=== PATIENT | male | born 1960 ===

== ENCOUNTER 2016-06-30 06:35 | Day surgery (SDC) | payer MEDICARE, MEDICAID ==
[2016-05-06 07:51] VITALS: BMI 38.4
[2016-06-30] MEDS ORDERED: ceFAZolin IV 2 gm in Dextrose 1 GM/50 ML BAG IVPB ONE (09:22)
[2016-06-30] MEDS ORDERED: Bupivacaine/Epi 0.25%-1:200,000 10 ml PF inj IJ ONE ×2 (09:22→09:23)
[2016-06-30] MEDS ORDERED: Lidocaine 1% Inj (20ml) ONE (09:22)
[2016-06-30] MEDS ORDERED: Lactated Ringer's 1,000 ML IV ONE ×2 (10:00→11:26)
[2016-06-30] MEDS ORDERED: Etomidate 20 mg/10ml Inj IV ONE (10:00)
[2016-06-30] MEDS ORDERED: Albuterol 0.083% Inhal Sol (2.5 mg/3 mL) UD INH PRN (10:58)
[2016-06-30] MEDS ORDERED: Labetalol 25mg/5ml Syringe IVP PRN (10:58)
[2016-06-30] MEDS ORDERED: HYDROmorphone 0.5 mg/0.5 ml ISec IVP PRN (10:58)
[2016-06-30] MEDS ORDERED: Neostigmine Methylsulfate 3mg/3ml Syringe IV ONE (11:44)
[2016-06-30] MEDS ORDERED: Rocuronium 10 mg/ml (5 ml) ONE (11:44)
[2016-06-30] MEDS ORDERED: Propofol 10 mg/ml Inj (20 ML) ONE (11:57)
[2016-06-30] MEDS ORDERED: Oxycodone/Acetaminophen 5/325 mg Tab PO PRN (12:22)
--- NOTE | 2016-06-30 12:25 | PCM.SURG1 ---
Surgeon's Initial Post Op Note - Surgeon's Notes Surgeon: Dr. Rahman Riffler Tender: Nica Loya Type of Anesthesia: General Endo, Local Pre-Operative Diagnosis: recurrent paraumbilical hernia Operative Findings: multiple para-umbilical fascial defects, dense adhesions, old mesh Post-Operative Diagnosis: same Operation Performed: robotic assisted laparoscopic paraumbilical hernia repair w / mesh placement, lysis of adhesion, removal of old mesh Specimen/Specimens Removed: hernia sac w/ old mesh Estimated Blood Loss: EBL {In ML}: 10 Blood Products Given: N/A Drains Used: No Drains Post-Op Condition: Good Date of Surgery/Procedure: 06/30/16 Time of Surgery/Procedure: 12:25
[2016-06-30 15:42] VITALS: BP 132/70; PULSE 88; RESP 18; TEMP 98; O2SAT 98
--- NOTE | 2016-07-01 08:10 | OP ---
PROCEDURE DATE: 06/30/2016 PREOPERATIVE DIAGNOSIS: Recurrent incisional umbilical hernia. POSTOPERATIVE DIAGNOSES: 1. Recurrent incisional umbilical hernia. 2. Extensive postoperative adhesion. 3. Morbid obesity. PROCEDURES DONE: 1. Robotic extensive lysis of adhesion. 2. Robotic incisional hernia repair with mesh. 4. Robotic removal of the old mesh (foreign body). SURGEON: Tj Rahman MD FABRIC DESIGNER: EDVIN Piña. Nica was present from the beginning to the end of the procedure. Helped in prepping and draping, placement of the ports, docking and undocking of the robot, closure of the wounds. SECOND CONTENT CHECKER: Jeanette Shaw. ANESTHESIA: General endotracheal tube anesthesia. ESTIMATED BLOOD LOSS: Around 10 mL. DRAINS: None. PATHOLOGY: The hernial sac and content as well as the old mesh were sent for pathology. COMPLICATIONS: None. INTRAOPERATIVE FINDINGS: The patient had approximately 4 x 4 cm incisional hernia with [place] cheese defect and the mesh migrated to the lower abdomen. INTRAOPERATIVE STEPS: This 56-year-old male was diagnosed with recurrent incisional umbilical hernia and patient was consented for robotic incisional umbilical hernia repair with the mesh. Brought to the OR, placed supine on the operating table. After induction of the anesthesia, abdomen was prepped and draped in a usual sterile fashion. The left upper quadrant 5 mm incision was made. After incising skin and subcutaneous tissue and using the Visiport, the peritoneal cavity was entered. Pneumo was created. Another two 8 mm ports were placed in the left flank and left lower quadrant, and 5 mm port was changed to 11 mm port and the robotic camera arm as well as arm 1 and arm 2 were docked and first extensive lysis of adhesion was done and there was a large amount of omentum reduced back into the peritoneal cavity. The hernial sac as well as the old mesh were completely excised, and mesh was debrided in pieces, and all the pieces were removed completely and sent off the table for the pathology. The fat was closed with #1 Prolene V-Loc suture and a 9 cm circular mesh was implanted. After proper implantation of the mesh, all the instruments were taken out, all the ports were taken out under vision. Pneumo was deflated. The 11 mm port was closed in 2 layers: The fascia with 0 Vicryl interrupted suture, skin with a 4-0 Monocryl. Dry, sterile dressing was applied. The patient tolerated the procedure well. Count of instruments and gauze was correct. There was no apparent complication. The patient was extubated in the OR, sent to the postanesthesia care unit in stable condition. Tj Rahman MD cc: [id number] TT: 07/01/2016 08:09:50 lucretia THOMPSON
== END 2016-06-30 15:45 | disposition home or self-care (01) ==
LOC: C.SDS 06:35
PROVIDERS: ATTEND Surgery Surgical Critical Care
DX: K42.9 Umbilical hernia without obstruction or gangrene (principal); E66.01 Morbid (severe) obesity due to excess calories; K66.0 Peritoneal adhesions (postprocedural) (postinfection)
CPT/HCPCS: 22999; 49329; 49652; 88302; J0690; J1170; J1885; J2001; J2405; J2704; J2710; J3010; J7120

== ENCOUNTER 2016-07-02 14:11 | Inpatient (IN) | payer MEDICARE, MEDICAID ==
[2016-07-02 14:12] VITALS: BMI 38.4
[2016-07-02] MEDS ORDERED: Sodium Chloride 0.9% 1,000 ML IV ONE (14:50)
[2016-07-02] MEDS ORDERED: Piperacillin/Tazobact 3.375 gm 100 ML IV STA (14:52)
--- NOTE | 2016-07-02 15:37 | C.PDOC ---
History Of Present Illness 56 y/o male presents to the ED with complains of abdominal distention and vomiting x2 days. Pt also reports no BM x3 days. Pt is s/p robotic umbilical hernia revision 06/30/16 without complications. Pt has been drinking tea and eating crackers at home. Denies diarrhea, fever, chills or any other complaints. Time Seen by Provider: 07/02/16 14:26 Chief Complaint (Nursing): GI Problem History Per: Patient History/Exam Limitations: no limitations Onset/Duration Of Symptoms: Days Current Symptoms Are (Timing): Still Present Severity: Moderate Recent travel outside of the [place]: No Past Medical History Reviewed: Historical Data, Nursing Documentation, Vital Signs Vital Signs: Last Vital Signs Temp 98.3 F 07/02/16 17:53 Pulse 99 H 07/02/16 17:57 Resp 16 07/02/16 17:53 BP 162/90 H 07/02/16 17:53 Pulse Ox 100 07/02/16 18:25 - Medical History PMH: Asthma Surgical History: - [facility] Procedures COLONOSCOPY (11/22/14) CORONAR ARTERIOGR-2 CATH (07/19/14) LEFT HEART CARDIAC CATH (07/19/14) LT HEART ANGIOCARDIOGRAM (07/19/14) Family History: States: Unknown Family Hx - Social History Hx Alcohol Use: Yes (WEEKENDS-SOCIAL) Hx Substance Use: No - Immunization History Hx Influenza Vaccination: Yes Hx Pneumococcal Vaccination: No Review Of Systems Except As Marked, All Systems Reviewed And Found Negative. Constitutional: Negative for: Fever, Chills Cardiovascular: Negative for: Chest Pain Respiratory: Negative for: Shortness of Breath Gastrointestinal: Positive for: Vomiting, Abdominal Pain (distension), Constipation. Negative for: Diarrhea Physical Exam - Physical Exam Appears: Non-toxic, In Acute Distress (moderate) Skin: Warm, Dry, No Rash Head: Atraumatic, Normacephalic Neck: Normal, Normal ROM, Supple Chest: Symmetrical Cardiovascular: Rhythm Regular, No Murmur Respiratory: Normal Breath Sounds, No Rales, No Rhonchi, No Wheezing Gastrointestinal/Abdominal: Distention (moderate), Other (Tense, tender, tympanic, globus) Extremity: Normal ROM Extremity: Bilateral: Atraumatic Neurological/Psych: Oriented x3, Normal Speech ED Course And Treatment - Laboratory Results Result Diagrams: 07/02/16 16:09 07/02/16 16:09 Lab Interpretation: Abnormal ECG: Interpreted By Me ECG Rhythm: Sinus Tachycardia ECG Interpretation: Abnormal Rate From EC O2 Sat by Pulse Oximetry: 100 (room air) Pulse Ox Interpretation: Normal - Radiology CXR: Interpreted by Me CXR Interpretation: Yes: No Acute Disease - CT Scan/US CT abdomen Other Rad Studies (CT/US): Read By Radiologist, Radiology Report Reviewed CT/US Interpretation: IMPRESSION: Dilated fluid-filled loops of small bowel worrisome for obstruction without transition point identified; ileus cannot be excluded. Diverticulosis without CT evidence of acute diverticulitis. Nasogastric tube. Subcutaneous emphysema consistent with recent postsurgical status. Subcutaneous stranding, a small fluid, and fatty density likely related to recent hernia repair. Additional findings as above. Progress Note: Nasogastric tube right 44cm to right nares, immediately drained 800cc yellowish GI contents. Pt tolerated well, no complications. Reevaluation Time: 18:15 Reassessment Condition: Improved (approx 2 liters NGT drainage, belly more soft , pt more comfortable) - Physician Consult Information Outcome Of Conversation: d/w Dr. Greenfield @ 1430, ok to adm to hospitalists. d/w dR. Andres- Hospitalist- @ 1430 and 1820, ok to Obs Medical Decision Making Medical Decision Makin Lacey at bedside, recommends CT scan, admit to hospitalist. 1815: prob post-op ilius, no obstruction, improved with NGT drainage. Hold off narcotics for pain control as they seem to be exacerbating intestinal ilius. Agressive floor walking encouraged. Disposition Doctor Will See Patient In The: Hospital Counseled Patient/Family Regarding: Studies Performed, Diagnosis - Disposition Disposition: HOSPITALIZED Disposition Time: 18:19 Condition: GOOD - Clinical Impression Clinical Impression: Ileus following gastrointestinal surgery - Scribe Statement The provider has reviewed the documentation as recorded by the Marium Best Provider Attestation: All medical record entries made by the Marium were at my direction and personally dictated by me. I have reviewed the chart and agree that the record accurately reflects my personal performance of the history, physical exam, medical decision making, and the department course for this patient. I have also personally directed, reviewed, and agree with the discharge instructions and disposition.
[2016-07-02 16:21] LABS: BASO % 0.1 % (0.0-2.0); HEMATOCRIT 40.8 % (35.0-51.0); LYMPH # 1.1 K/uL (1.0-4.3); LYMPH % 6.3 % (20.0-40.0); MEAN CELL VOLUME 62.3 fL (80.0-94.0); MEAN CORPUSCULAR HEMOGLOBIN 19.2 pg (27.0-31.0); MEAN CORPUSCULAR HGB CONC 30.8 g/dL (33.0-37.0); MEAN PLATELET VOLUME 8.5 fL (7.2-11.7); MONO # 0.7 K/uL (0.0-0.8); MONO % 4.3 % (0.0-10.0); PLATELET COUNT 243 K/uL (130-400); WHITE BLOOD COUNT 17.4 K/uL (4.8-10.8)
[2016-07-02 16:22] LABS: INR 1.1
[2016-07-02 16:23] LABS: CHLORIDE 90 mmol/L (98-107); SODIUM 136 mmol/L (132-148)
[2016-07-02 16:24] LABS: POTASSIUM 4.5 mmol/L (3.6-5.2)
[2016-07-02 16:26] LABS: ALB/GLOB RATIO 1.2 (1.0-2.1); ALKALINE PHOSPHATASE 65 U/L (38-126); AST/SGOT 35 U/L (17-59); BILIRUBIN,TOTAL 1.3 mg/dL (0.2-1.3); BLOOD UREA NITROGEN 8 mg/dL (9-20); CARBON DIOXIDE 30 mmol/L (22-30); GFR AFRICAN-AMERICAN > 60; GLUCOSE,RANDOM 117 mg/dL (75-110); TOTAL PROTEIN 8.3 g/dL (6.3-8.3)
[2016-07-02 16:27] LABS: ALT/SGPT 28 U/L (21-72); CALCIUM 9.2 mg/dl (8.6-10.4)
--- NOTE | 2016-07-02 16:46 | RAD ---
HISTORY: abd pain COMPARISON: Chest x-ray performed 03/31/16 TECHNIQUE: Chest, one view. FINDINGS: Examination limited by habitus. NG tube extends expected location of the stomach. LUNGS: No focal consolidation. Please note that chest x-ray has limited sensitivity for the detection of pulmonary masses. PLEURA: No significant pleural effusion identified. No definite pneumothorax . CARDIOVASCULAR: Cardiomegaly. OSSEOUS STRUCTURES: No acute osseous abnormality identified. VISUALIZED UPPER ABDOMEN: Mild elevation of the right hemidiaphragm. OTHER FINDINGS: None. IMPRESSION: Nasogastric tube extends expected location of the stomach.
--- NOTE | 2016-07-02 16:49 | CP.PCM.CON ---
<Joshua Shaw - Last Filed: 07/02/16 16:44> History of Present Illness - History of Present Illness History of Present Illness: Surgery: Dr. Rahman Reason for consult: post op ileus CC: abdominal pain, vomiting HPI: Patient is a 56 y/o male s/p robotic ventral hernia repair on 06/30/2016 who presents complaining of abdominal pain, distention, and vomiting over the past two days. He states he would try to eat however was unable to keep food down. He describes the pain as mild and diffuse around abdomen. He reports not having bowel movement or passing flatus since surgery. He reports trying to take his medication percocet and colace however the pain medication or the colace helped with the symptom. Patient denies f/c/diarrhea. He denies chest pain or shortness of breath. PMH: COPD, B-thalassemia, CAD, diverticulosis, gastritis PSH: umbilical hernia repair 2011, recent Robotic repair of recurrent ventral hernia 06/30/16, colonoscopy, cervical and lumbar discectomy Social: denies tobacco or ETOH NKDA Review of Systems - Review of Systems All systems: reviewed and no additional remarkable complaints except Review of Systems: 12 point ROS obtained and otherwise negative unless stated - EENT Eyes: absent: Blurred Vision, Change in Vision Ears: absent: Disequilibrium, Dizziness Nose/Mouth/Throat: absent: Nasal Congestion, Sore Throat - Cardiovascular Cardiovascular: absent: Chest Pain, Syncope - Respiratory Respiratory: absent: Cough, Wheezing - Gastrointestinal Gastrointestinal: Abdominal Pain, Bloating, Change in Bowel Habits, Constipation , Nausea, Vomiting. absent: Diarrhea, Excessive Flatus - Genitourinary Genitourinary: absent: Dysuria, Hematuria - Musculoskeletal Musculoskeletal: absent: Numbness, Tingling - Neurological Neurological: absent: Syncope, Weakness - Endocrine Endocrine: absent: Polydipsia, Polyphagia - Hematologic/Lymphatic Hematologic: absent: Easy Bleeding, Easy Bruising Past Patient History - Past Medical History & Family History Past Medical History?: Yes - Past Social History Smoking Status: Never Smoked - PULMONARY Hx Asthma: Yes - NEUROLOGICAL Hx Neurological Disorder: No - HEENT Hx HEENT Problems: No - RENAL Hx Chronic Kidney Disease: No - ENDOCRINE/METABOLIC Hx Endocrine Disorders: No - INTEGUMENTARY Hx Dermatological Problems: No - MUSCULOSKELETAL/RHEUMATOLOGICAL Hx Herniated Disk: Yes (lumbar) - GASTROINTESTINAL Hx Gastrointestinal Disorders: Yes Other/Comment: umbilical hernia - GENITOURINARY/GYNECOLOGICAL Hx Genitourinary Disorders: No - PSYCHIATRIC Hx Substance Use: No - SURGICAL HISTORY Other/Comment: removal vein right leg - ANESTHESIA Hx Anesthesia: Yes Hx Anesthesia Reactions: No Hx Malignant Hyperthermia: No Meds Allergies/Adverse Reactions: Allergies Allergy/AdvReac Type Severity Reaction Status Date / Time No Known Allergies Allergy Verified 11/26/15 12:07 Physical Exam - Constitutional Appears: Non-toxic, No Acute Distress - Head Exam Head Exam: ATRAUMATIC, NORMOCEPHALIC - Eye Exam Eye Exam: EOMI, Normal appearance - ENT Exam ENT Exam: Mucous Membranes Moist Additional comments: NGT in place with gastric feculent like material output - Respiratory Exam Respiratory Exam: NORMAL BREATHING PATTERN. absent: Respiratory Distress - Cardiovascular Exam Cardiovascular Exam: REGULAR RHYTHM. absent: Tachycardia - GI/Abdominal Exam GI & Abdominal Exam: Distended, Soft, Tenderness (diffuse and mild in nature). absent: Guarding, Hernia, Rebound, Rigid Additional comments: pressure dressing midline and 3 small island dressing on the left lateral abdomen CDI - Extremities Exam Extremities exam: Positive for: normal inspection. Negative for: calf tenderness - Neurological Exam Neurological exam: Alert, Oriented x3 - Psychiatric Exam Psychiatric exam: Normal Affect, Normal Mood - Skin Skin Exam: Dry, Intact, Normal Color, Warm Results - Vital Signs Recent Vital Signs: Last Vital Signs Temp 99.1 F 07/02/16 14:17 Pulse 101 H 07/02/16 14:17 Resp 18 07/02/16 14:17 BP 143/97 H 07/02/16 14:17 Pulse Ox 100 07/02/16 16:00 - Labs Result Diagrams: 07/02/16 16:09 07/02/16 16:09 Labs: Laboratory Results - last 24 hr 07/02/16 07/02/16 07/02/16 16:09 16:09 16:09 WBC 17.4 H RBC 6.54 H Hgb 12.5 Hct 40.8 MCV 62.3 L MCH 19.2 L MCHC 30.8 L RDW 16.0 H Plt Count 243 MPV 8.5 Neut % (Auto) 89.3 H Lymph % (Auto) 6.3 L [place] % (Auto) 4.3 Eos % (Auto) 0.0 Baso % (Auto) 0.1 Neut # 15.6 H Lymph # 1.1 [place] # 0.7 Eos # 0.0 Baso # 0.0 PT 12.4 H INR 1.1 APTT 31 Sodium 136 Potassium 4.5 Chloride 90 L Carbon Dioxide 30 Anion Gap 21 H BUN 8 L Creatinine 0.6 L Est GFR ( Amer) > 60 Est GFR (Non-Af Amer) > 60 Random Glucose 117 H Calcium 9.2 Total Bilirubin 1.3 AST 35 ALT 28 Alkaline Phosphatase 65 Total Protein 8.3 Albumin 4.5 Globulin 3.8 Albumin/Globulin Ratio 1.2 Lipase 31 Assessment & Plan - Assessment and Plan (Free Text) Assessment: 56 y/o male s/p robotic VHR POD2 who presents w/ post op ileus Plan: -admit to medicine -surgery on consult -leave dressing in place, do not remove -IVFs -NGT to low cont. wall suction, monitor out put -serial abdominal exams -f/u CT abd and pelvis -encourage ambulation, ok to clamp NGT for ambulation -IS use -DVT prophylaxis -am labs -d/w Dr. Rahman AKWhite PGY1 <Tj Rahman - Last Filed: 07/07/16 21:58> Results - Vital Signs Recent Vital Signs: Last Vital Signs Temp 98.3 F 07/05/16 08:00 Pulse 87 07/05/16 08:00 Resp 20 07/05/16 08:00 BP 149/94 H 07/05/16 08:00 Pulse Ox 95 07/05/16 08:00 - Labs Result Diagrams: 07/05/16 06:02 07/05/16 06:02 Attending/Attestation - Attestation I have personally seen and examined this patient.: Yes I have fully participated in the care of the patient.: Yes I have reviewed all pertinent clinical information: Yes Notes (Text): 07/07/16 21:57 Pt was seen and examined at bedside on 07/02/16 Agree with above note and assessment. Pt with Morbid obesity and Multiple Medical Comorbidites Pt has Narcotic induced Ileus NG to LIS, NPO Home meds Plan d.w pt in detail. We will f.u
--- NOTE | 2016-07-02 16:50 | CP.PCM.HP ---
<Sarah Lemos - Last Filed: 07/02/16 18:06> History of Present Illness - History of Present Illness History of Present Illness: CC: "I couldn't stop vomiting yesterday" 56 year old male with PMHx of cardiomyopathy, CHF with 41% EF, non obstructive CAD, B-thalassemia, asthma/COPD presents to the ED with 2 days history of abdominal pain and 1 day history of intractable nausea and vomiting. Patient is POD#2 s/p robotic assisted lap ventral hernia repair on 06/30/[address] Rahman. Patient reports he was not able to keep any food down since yesterday. Admits to abdominal distension and states he has had no bowel movements since before the surgery. Patient took Ibuprofen with no relief. Patient also reports "little urine" and denies dysuria. Patient prescribed Colace and Lactulose by PMD. PMHx:cardiomyopathy, CHF with 41% EF, non obstructive CAD, B-thalassemia, asthma /COPD, Medications: [place]ro[place]ois-3 1 g daily, Zetia 10 mg PO daily, Advair 250 INH Q12H, Ambien 5 mg PO HS PRN, Lisinopril 5 mg PO daily (confirmed with pharmacy). NKDA Social Hx: denies alcohol, tobacco or illicit drug use. Surg Hx: umbilical hernia repair 2011, ventral hernia 06/30/16, R calf tumor ( hemangioma) resection with Dr. Chowdary in 2016, cervical and lumbar discectomy. Family Hx: denies PMD: Dr. Aleman. Present on Admission - Present on Admission Any Indicators Present on Admission: No Review of Systems - Constitutional Constitutional: absent: Chills, Fatigue, Fever - EENT Eyes: absent: Blurred Vision, Change in Vision Ears: absent: Dizziness - Cardiovascular Cardiovascular: absent: Chest Pain, Dyspnea, Edema - Respiratory Respiratory: absent: Cough, Dyspnea, Dyspnea on Exertion, Wheezing, Snoring - Gastrointestinal Gastrointestinal: Abdominal Pain, Constipation, Nausea, Vomiting. absent: Diarrhea - Genitourinary Genitourinary: Change in Urinary Stream, Difficulty Urinating. absent: Dysuria - Musculoskeletal Musculoskeletal: absent: Back Pain, Numbness, Stiffness, Tingling - Neurological Neurological: absent: Dizziness, Numbness, Tingling, Weakness - Psychiatric Psychiatric: absent: Anxiety, Depression - Endocrine Endocrine: absent: Fatigue, Palpitations - Hematologic/Lymphatic Hematologic: absent: Easy Bruising Past Patient History - Past Medical History & Family History Past Medical History?: Yes - Past Social History Smoking Status: Never Smoked - PULMONARY Hx Asthma: Yes - NEUROLOGICAL Hx Neurological Disorder: No - HEENT Hx HEENT Problems: No - RENAL Hx Chronic Kidney Disease: No - ENDOCRINE/METABOLIC Hx Endocrine Disorders: No - INTEGUMENTARY Hx Dermatological Problems: No - MUSCULOSKELETAL/RHEUMATOLOGICAL Hx Herniated Disk: Yes (lumbar) - GASTROINTESTINAL Hx Gastrointestinal Disorders: Yes Other/Comment: umbilical hernia - GENITOURINARY/GYNECOLOGICAL Hx Genitourinary Disorders: No - PSYCHIATRIC Hx Substance Use: No - SURGICAL HISTORY Other/Comment: removal vein right leg - ANESTHESIA Hx Anesthesia: Yes Hx Anesthesia Reactions: No Hx Malignant Hyperthermia: No Meds Allergies/Adverse Reactions: Allergies Allergy/AdvReac Type Severity Reaction Status Date / Time No Known Allergies Allergy Verified 11/26/15 12:07 Physical Exam - Constitutional Appears: No Acute Distress - Head Exam Head Exam: NORMAL INSPECTION, NORMOCEPHALIC - Eye Exam Eye Exam: EOMI, Normal appearance - ENT Exam ENT Exam: Mucous Membranes Moist - Neck Exam Neck exam: Positive for: Full Rom, Normal Inspection - Respiratory Exam Respiratory Exam: Clear to Auscultation Bilateral, NORMAL BREATHING PATTERN. absent: Rales, Rhonchi, Wheezes - Cardiovascular Exam Cardiovascular Exam: REGULAR RHYTHM, +S1, +S2 - GI/Abdominal Exam GI & Abdominal Exam: Diminished Bowel Sounds, Distended, Firm, Tenderness ( diffuse). absent: Hernia Additional comments: Incision sites dressed: c/d/i. Midline pressure dressing with no wound under: c/d/i. - Extremities Exam Extremities exam: Positive for: full ROM, normal inspection. Negative for: pedal edema, tenderness - Back Exam Back exam: NORMAL INSPECTION - Neurological Exam Neurological exam: Alert, Oriented x3 - Psychiatric Exam Psychiatric exam: Normal Affect, Normal Mood - Skin Skin Exam: Dry, Normal Color, Warm Results - Vital Signs Recent Vital Signs: Last Vital Signs Temp 99.1 F 07/02/16 14:17 Pulse 101 H 07/02/16 14:17 Resp 18 07/02/16 14:17 BP 143/97 H 07/02/16 14:17 Pulse Ox 100 07/02/16 16:00 - Labs Result Diagrams: 07/02/16 16:09 07/02/16 16:09 Labs: Laboratory Results - last 24 hr 07/02/16 07/02/16 07/02/16 16:09 16:09 16:09 WBC 17.4 H RBC 6.54 H Hgb 12.5 Hct 40.8 MCV 62.3 L MCH 19.2 L MCHC 30.8 L RDW 16.0 H Plt Count 243 MPV 8.5 Neut % (Auto) 89.3 H Lymph % (Auto) 6.3 L [place] % (Auto) 4.3 Eos % (Auto) 0.0 Baso % (Auto) 0.1 Neut # 15.6 H Lymph # 1.1 [place] # 0.7 Eos # 0.0 Baso # 0.0 PT 12.4 H INR 1.1 APTT 31 Sodium 136 Potassium 4.5 Chloride 90 L Carbon Dioxide 30 Anion Gap 21 H BUN 8 L Creatinine 0.6 L Est GFR ( Amer) > 60 Est GFR (Non-Af Amer) > 60 Random Glucose 117 H Calcium 9.2 Total Bilirubin 1.3 AST 35 ALT 28 Alkaline Phosphatase 65 Troponin I 0.0180 Total Protein 8.3 Albumin 4.5 Globulin 3.8 Albumin/Globulin Ratio 1.2 Lipase 31 Assessment & Plan (1) Abdominal pain Assessment and Plan: POD #2 s/p robotic ventral hernia repair with Dr. Rahman. Patient w/ post op ileus Surgery consult placed- Dr. Rahman - help appreciated. NGT placed in the ED. NGT on suction. Keep NPO, no PO meds. Patient on LR IVF as per surgery. Pain control with Morphine as per surgery. f/u abdominal CT. Status: Acute (2) Nausea & vomiting Assessment and Plan: Zofran PRN Status: Acute (3) CHF (congestive heart failure) Assessment and Plan: Patient with cardiomyopathy and 41% EF. Patient sees Dr. Edwards as outpatient. Hx of positive stress test and recent cath 04/2016 showing non-obstructive coronary artery disease. Lisinopril 5 mg PO (home med) on hold. Will consult cardio as needed. Status: Acute (4) CAD (coronary artery disease) Assessment and Plan: Hx of positive stress test and recent cath 04/2016 showing non-obstructive coronary artery disease. Status: Acute (5) COPD (chronic obstructive pulmonary disease) Assessment and Plan: Duonebs Q6H PRN SOB Resume home med Advair Diskus 250/50 INH Q12H Status: Acute (6) Prophylactic measure Assessment and Plan: Pepcid IVP daily Heparin SC Q12H Status: Acute <Sonya Zepedat - Last Filed: 07/31/16 10:19> Results - Vital Signs Recent Vital Signs: Last Vital Signs Temp 98.3 F 07/05/16 08:00 Pulse 87 07/05/16 08:00 Resp 20 07/05/16 08:00 BP 149/94 H 07/05/16 08:00 Pulse Ox 95 07/05/16 08:00 - Labs Result Diagrams: 07/05/16 06:02 07/05/16 06:02 Attending/Attestation - Attestation I have personally seen and examined this patient.: Yes I have fully participated in the care of the patient.: Yes I have reviewed all pertinent clinical information: Yes Notes (Text): Patient seen and examined with the resident. Agree with the resident's evaluation, assessment and plan. Patient developed SBO cont care per surgery. history of chf - we will monitor on fluids.
[2016-07-02] MEDS ORDERED: Iodixanol 320 MG/ML 100 ML BOTTLE IV ONE (16:52)
[2016-07-02] MEDS ORDERED: Morphine 4 MG/ML VIAL IVP PRN (16:55)
[2016-07-02] MEDS ORDERED: Potassium Ch 20mEq in D5-1/2NS 1,000 ML IV SCH (17:00)
[2016-07-02 17:11] LABS: RBC URINE 2 /hpf (0-3); URINE BILIRUBIN NEGATIVE (NEGATIVE); URINE BLOOD NEGATIVE (NEGATIVE); URINE GLUCOSE (UA) NORMAL (Normal); URINE KETONE 2+ mg/dL (NEGATIVE); URINE LEUKOCYTE ESTERASE NEG Leu/uL (Negative); URINE PROTEIN 2+ mg/dL (NEGATIVE); WBC URINE 11 /hpf (0-5)
[2016-07-02 17:13] LABS: URINE COLOR YELLOW (YELLOW)
[2016-07-02 17:19] LABS: NEUTROPHIL 84 % (50-75); TOTAL CELLS COUNTED 100
[2016-07-02] MEDS ORDERED: Sodium Chloride 0.9% 1,000 ML ONE (17:36)
[2016-07-02] MEDS ORDERED: Piperacillin/Tazobact 3.375 gm 100 ML IVPB ONE (17:44)
--- NOTE | 2016-07-02 17:49 | CT ---
PROCEDURE: CT Abdomen and Pelvis with contrast HISTORY: vom/no stool s/p vent ayala repair 06/29, ? SBO/ilius COMPARISON: None available TECHNIQUE: Contrast dose: 100 mL Visipaque Radiation dose: Total exam DLP = 1005.98 mGy-cm. This CT exam was performed using one or more of the following dose reduction techniques: Automated exposure control, adjustment of the mA and/or kV according to patient size, and/or use of iterative reconstruction technique. FINDINGS: LOWER THORAX: No visible consolidation, pleural effusion, or pneumothorax. LIVER: Unremarkable. GALLBLADDER AND BILE DUCTS: Unremarkable. PANCREAS: Unremarkable. SPLEEN: Unremarkable. ADRENALS: Unremarkable. KIDNEYS AND URETERS: The kidneys enhance symmetrically. No hydronephrosis or obstructing calculus identified. VASCULATURE: No aortic aneurysm. BOWEL: Nasogastric tube extends to the stomach. The stomach is incompletely distended limiting evaluation for gastric pathology. Dilated fluid-filled loops of small bowel worrisome for obstruction without transition point identified; ileus cannot be excluded. Diverticulosis without CT evidence of acute diverticulitis. APPENDIX: The appendix appears within normal limits of caliber. No secondary signs of acute appendicitis. PERITONEUM: Small pelvic free free fluid. No definite free air. LYMPH NODES: No bulky adenopathy. BLADDER: Decompressed urinary bladder limits evaluation. REPRODUCTIVE: Unremarkable. BONES: No acute osseous abnormality is detected. OTHER FINDINGS: Subcutaneous emphysema consistent with recent postsurgical status. Subcutaneous stranding, a small fluid, and fatty density likely related to recent hernia repair. IMPRESSION: Dilated fluid-filled loops of small bowel worrisome for obstruction without transition point identified; ileus cannot be excluded. Diverticulosis without CT evidence of acute diverticulitis. Nasogastric tube. Subcutaneous emphysema consistent with recent postsurgical status. Subcutaneous stranding, a small fluid, and fatty density likely related to recent hernia repair. Additional findings as above.
[2016-07-02] MEDS: Lactated Ringer's 1,000 ML IV SCH (17:50)
[2016-07-02] MEDS ORDERED: Albuterol-Ipratrop 3 mg / 0.5 (3 ml) UD INH PRN (18:11)
[2016-07-02] MEDS: Fluticasone-Salmeterol 250-50mcg Diskus INH SCH (19:37)
[2016-07-02 20:44] VITALS: RESP 20
[2016-07-03] MEDS: Lactated Ringer's 1,000 ML IV SCH ×4 (00:54→23:17)
[2016-07-03] MEDS: Morphine 4 MG/ML VIAL IVP PRN ×2 (02:00→06:55)
[2016-07-03 07:45] LABS: BASO % 0.1 % (0.0-2.0); EOS % 0.2 % (0.0-4.0); HEMATOCRIT 39.1 % (35.0-51.0); LYMPH # 1.7 K/uL (1.0-4.3); LYMPH % 16.4 % (20.0-40.0); MEAN CELL VOLUME 62.2 fL (80.0-94.0); MEAN CORPUSCULAR HEMOGLOBIN 19.1 pg (27.0-31.0); MEAN CORPUSCULAR HGB CONC 30.7 g/dL (33.0-37.0); MEAN PLATELET VOLUME 9.3 fL (7.2-11.7); MONO # 0.8 K/uL (0.0-0.8); WHITE BLOOD COUNT 10.2 K/uL (4.8-10.8)
[2016-07-03 07:52] LABS: CHLORIDE 92 mmol/L (98-107)
[2016-07-03 07:53] LABS: POTASSIUM 3.7 mmol/L (3.6-5.2); SODIUM 133 mmol/L (132-148)
[2016-07-03 07:55] LABS: ALB/GLOB RATIO 1.2 (1.0-2.1); ALKALINE PHOSPHATASE 58 U/L (38-126); AST/SGOT 24 U/L (17-59); BILIRUBIN,TOTAL 1.2 mg/dL (0.2-1.3); CARBON DIOXIDE 26 mmol/L (22-30); GFR AFRICAN-AMERICAN > 60
[2016-07-03 07:56] LABS: ALT/SGPT 25 U/L (21-72); BLOOD UREA NITROGEN 9 mg/dL (9-20); CALCIUM 7.9 mg/dl (8.6-10.4); GLUCOSE,RANDOM 119 mg/dL (75-110)
[2016-07-03] MEDS: Fluticasone-Salmeterol 250-50mcg Diskus INH SCH ×2 (11:00→19:34)
--- NOTE | 2016-07-03 11:53 | CP.PCM.PN ---
Subjective - Date & Time of Evaluation Date of Evaluation: 07/03/16 Time of Evaluation: 11:50 - Subjective Subjective: Surgery: Dr. Rahman Patient complains of not being completely better. States the pain is resolved but still occasionally has nausea. Denies flatus or BM. Reports being OOB ambulating. Denies SOB or chest pain. Objective - Vital Signs/Intake and Output Vital Signs (last 24 hours): Temp Pulse Resp BP Pulse Ox 98.2 F 102 H 20 137/92 H 96 07/03/16 08:56 07/03/16 08:56 07/03/16 08:56 07/03/16 08:56 07/03/16 08:56 Intake and Output: 07/03/16 07/03/16 06:59 18:59 Intake Total 1660 Output Total 800 Balance 860 - Medications Medications: Current Medications Albuterol/Ipratropium (Duoneb 3 Mg/0.5 Mg (3 Ml) Ud) 3 ml INH RQ6 PRN PRN Reason: Shortness of Breath Ezetimibe (Zetia) 10 mg PO DAILY [facility] Famotidine (Pepcid) 20 mg IVP DAILY [facility] Last Admin: 07/03/16 10:06 Dose: 20 mg Heparin Sodium (Porcine) (Heparin) 5,000 units SC Q12 [facility] Last Admin: 07/03/16 10:07 Dose: 5,000 units Lactated Ringer's (Lactated Ringer's) 1,000 mls @ 135 mls/hr IV .Q7H25M [facility] Last Admin: 07/03/16 10:11 Dose: 135 mls/hr Lisinopril (Zestril) 5 mg PO DAILY [facility] Morphine Sulfate (Morphine) 6 mg IVP Q4H PRN PRN Reason: Pain, severe (8-10) Morphine Sulfate (Morphine) 4 mg IVP Q4H PRN PRN Reason: Pain, moderate (4-7) Last Admin: 07/03/16 06:55 Dose: 4 mg Ondansetron HCl (Zofran Inj) 4 mg IVP Q4 PRN PRN Reason: Nausea/Vomiting Fluticasone/Salmeterol (Advair Diskus 250/50) 1 puff INH RQ12 [facility] Last Admin: 07/02/16 19:37 Dose: Not Given Zolpidem Tartrate (Ambien) 5 mg PO HS PRN PRN Reason: Insomnia - Labs Labs: 07/03/16 07:18 07/03/16 07:18 PT 12.4 SECONDS (9.7-12.2) H 07/02/16 16:09 INR 1.1 07/02/16 16:09 APTT 31 SECONDS (21-34) 07/02/16 16:09 - Constitutional Appears: Non-toxic, No Acute Distress - Head Exam Head Exam: ATRAUMATIC, NORMOCEPHALIC - Eye Exam Eye Exam: EOMI, Normal appearance - ENT Exam ENT Exam: Mucous Membranes Moist Additional comments: NGT in place at 55cm. 700cc/12hrs of feculent output - Respiratory Exam Respiratory Exam: NORMAL BREATHING PATTERN. absent: Respiratory Distress - Cardiovascular Exam Cardiovascular Exam: REGULAR RHYTHM. absent: Tachycardia - GI/Abdominal Exam GI & Abdominal Exam: Distended, Soft. absent: Guarding, Tenderness, Rebound Additional comments: dressing CDI - Neurological Exam Neurological Exam: Alert, Awake, Oriented x3 - Skin Skin Exam: Dry, Normal Color, Warm Assessment and Plan - Assessment and Plan (Free Text) Assessment: 56 y/o male w/ post op ileus Plan: -cont NGT to low continuous wall suction -NGT can be clamped if patient ambulating -NPO -IVFs -repleat any electorlyte abnormality -encourage OOB and IS use -leave dressings in place -monitor for bowel function -further medical management per primary -d/w Dr. Lacey DAVILAbraulio PGY1
--- NOTE | 2016-07-03 14:41 | CP.PCM.PN ---
<Vika Scales H - Last Filed: 07/03/16 14:38> Subjective - Date & Time of Evaluation Date of Evaluation: 07/03/16 Time of Evaluation: 10:45 - Subjective Subjective: PGY2 Medicine Note - Dr. Zepeda's service: Patient seen and examined at bedside this AM. Patient reports slight abdominal pain at site of hernia repair. Patient says he has not had a bowel movement in 4 days. Patient has NGT in place draining dark green fluid. Patient denies fever, chills, chest pain, SOB, vomiting, diarrhea. Objective - Vital Signs/Intake and Output Vital Signs (last 24 hours): Temp Pulse Resp BP Pulse Ox 98.2 F 102 H 20 137/92 H 96 07/03/16 08:56 07/03/16 08:56 07/03/16 08:56 07/03/16 08:56 07/03/16 08:56 Intake and Output: 07/03/16 07/03/16 06:59 18:59 Intake Total 1660 1080 Output Total 800 1000 Balance 860 80 - Medications Medications: Current Medications Albuterol/Ipratropium (Duoneb 3 Mg/0.5 Mg (3 Ml) Ud) 3 ml INH RQ6 PRN PRN Reason: Shortness of Breath Ezetimibe (Zetia) 10 mg PO DAILY [facility] Famotidine (Pepcid) 20 mg IVP DAILY [facility] Last Admin: 07/03/16 10:06 Dose: 20 mg Heparin Sodium (Porcine) (Heparin) 5,000 units SC Q12 [facility] Last Admin: 07/03/16 10:07 Dose: 5,000 units Lactated Ringer's (Lactated Ringer's) 1,000 mls @ 135 mls/hr IV .Q7H25M [facility] Last Admin: 07/03/16 10:11 Dose: 135 mls/hr Lisinopril (Zestril) 5 mg PO DAILY [facility] Morphine Sulfate (Morphine) 6 mg IVP Q4H PRN PRN Reason: Pain, severe (8-10) Morphine Sulfate (Morphine) 4 mg IVP Q4H PRN PRN Reason: Pain, moderate (4-7) Last Admin: 07/03/16 06:55 Dose: 4 mg Ondansetron HCl (Zofran Inj) 4 mg IVP Q4 PRN PRN Reason: Nausea/Vomiting Fluticasone/Salmeterol (Advair Diskus 250/50) 1 puff INH RQ12 [facility] Last Admin: 07/03/16 11:00 Dose: 1 puff Zolpidem Tartrate (Ambien) 5 mg PO HS PRN PRN Reason: Insomnia - Labs Labs: 07/03/16 07:18 07/03/16 07:18 PT 12.4 SECONDS (9.7-12.2) H 07/02/16 16:09 INR 1.1 07/02/16 16:09 APTT 31 SECONDS (21-34) 07/02/16 16:09 - Constitutional Appears: Non-toxic, No Acute Distress - Head Exam Head Exam: NORMAL INSPECTION - Eye Exam Eye Exam: EOMI - ENT Exam ENT Exam: Mucous Membranes Moist Additional comments: NGT in place - Respiratory Exam Respiratory Exam: Clear to Ausculation Bilateral, NORMAL BREATHING PATTERN. absent: Rales, Rhonchi, Wheezes - Cardiovascular Exam Cardiovascular Exam: REGULAR RHYTHM, +S1, +S2. absent: Gallop, Rubs - GI/Abdominal Exam GI & Abdominal Exam: Distended, Firm, Tenderness, Hypoactive Bowel Sounds - Extremities Exam Extremities Exam: absent: Pedal Edema - Neurological Exam Neurological Exam: Alert, Awake, Oriented x3 - Psychiatric Exam Psychiatric exam: Normal Affect, Normal Mood - Skin Skin Exam: Normal Color, Warm Assessment and Plan - Assessment and Plan (Free Text) Assessment: (1) Abdominal pain Assessment and Plan: POD #3 s/p robotic ventral hernia repair with Dr. Rahman. Patient w/ post op ileus Surgery consult placed- Dr. Rahman - help appreciated. NGT placed in the ED. NGT on suction. Keep NPO, no PO meds. Patient on LR IVF as per surgery. Pain control with Morphine as per surgery. Abd/Pelvis CT - dilated fluid filled loops of small bowel worrisome for obstruction without transition point identified. Ileus cannot be excluded. Diverticulosis also seen. (please see full report) Status: Acute (2) Nausea & vomiting Assessment and Plan: Zofran PRN Resolved Status: Acute (3) CHF (congestive heart failure) Assessment and Plan: Patient with cardiomyopathy and 41% EF. Patient sees Dr. Edwards as outpatient. Hx of positive stress test and recent cath 04/2016 showing non-obstructive coronary artery disease. Lisinopril 5 mg PO (home med) on hold. Will consult cardio as needed. Status: Acute (4) CAD (coronary artery disease) Assessment and Plan: Hx of positive stress test and recent cath 04/2016 showing non-obstructive coronary artery disease. Status: Acute (5) COPD (chronic obstructive pulmonary disease) Assessment and Plan: Duonebs Q6H PRN SOB Resume home med Advair Diskus 250/50 INH Q12H Status: Acute (6) Prophylactic measure Assessment and Plan: Pepcid IVP daily Heparin SC Q12H Status: Acute <Santiago Zepeda - Last Filed: 08/11/16 16:00> Objective - Vital Signs/Intake and Output Vital Signs (last 24 hours): Temp Pulse Resp BP Pulse Ox 98.3 F 87 20 149/94 H 95 07/05/16 08:00 07/05/16 08:00 07/05/16 08:00 07/05/16 08:00 07/05/16 08:00 - Labs Labs: 07/05/16 06:02 07/05/16 06:02 PT 12.4 SECONDS (9.7-12.2) H 07/02/16 16:09 INR 1.1 07/02/16 16:09 APTT 31 SECONDS (21-34) 07/02/16 16:09 Attending/Attestation - Attestation I have personally seen and examined this patient.: Yes I have fully participated in the care of the patient.: Yes I have reviewed all pertinent clinical information, including history, physical exam and plan: Yes Notes (Text): Patient Seen and examined with the resident. Agree with the resident's evaluation, assessment and plan. Abdominal pain post hernia repair and post op illeus Assessment and Plan: POD #3 s/p robotic ventral hernia repair with Dr. Rahman. Patient w/ post op ileus management per surgery Nausea & vomiting Assessment and Plan: Zofran PRN Resolved CHF (congestive heart failure) diastolic chronic Assessment and Plan: Patient with cardiomyopathy and 41% EF. CAD (coronary artery disease) Hx of positive stress test and recent cath 04/2016 showing non-obstructive coronary artery disease.
[2016-07-03 17:36] LABS: RBC URINE < 1 /hpf (0-3); URINE BACTERIA RARE (<OCC); URINE BILIRUBIN NEGATIVE (NEGATIVE); URINE BLOOD NEGATIVE (NEGATIVE); URINE COLOR Amber (YELLOW); URINE GLUCOSE (UA) NORMAL (Normal); URINE KETONE 2+ mg/dL (NEGATIVE); URINE LEUKOCYTE ESTERASE NEG Leu/uL (Negative); URINE PROTEIN 1+ mg/dL (NEGATIVE); WBC URINE 1 /hpf (0-5)
[2016-07-04] MEDS ORDERED: Benzocaine/Menthol (Cepacol) Lozenge MT PRN (00:28)
[2016-07-04] MEDS ORDERED: Phenol Topical 1.4% Throat Spray (180 ml) MT PRN (01:27)
[2016-07-04] MEDS: Morphine 4 MG/ML VIAL IVP PRN (02:31)
[2016-07-04 07:08] LABS: CHLORIDE 93 mmol/L (98-107)
[2016-07-04 07:09] LABS: POTASSIUM 4.2 mmol/L (3.6-5.2); SODIUM 135 mmol/L (132-148)
[2016-07-04 07:11] LABS: ALB/GLOB RATIO 1.1 (1.0-2.1); AST/SGOT 40 U/L (17-59); BILIRUBIN,TOTAL 1.3 mg/dL (0.2-1.3); BLOOD UREA NITROGEN 12 mg/dL (9-20); CARBON DIOXIDE 29 mmol/L (22-30); GFR AFRICAN-AMERICAN > 60; TOTAL PROTEIN 7.4 g/dL (6.3-8.3)
[2016-07-04 07:12] LABS: ALKALINE PHOSPHATASE 44 U/L (38-126); ALT/SGPT 28 U/L (21-72); CALCIUM 8.6 mg/dl (8.6-10.4); GLUCOSE,RANDOM 91 mg/dL (75-110)
[2016-07-04 07:23] LABS: BASO % 0.2 % (0.0-2.0); EOS % 0.6 % (0.0-4.0); HEMATOCRIT 38.3 % (35.0-51.0); LYMPH # 3.3 K/uL (1.0-4.3); LYMPH % 37.8 % (20.0-40.0); MEAN CELL VOLUME 61.7 fL (80.0-94.0); MEAN CORPUSCULAR HGB CONC 30.7 g/dL (33.0-37.0); MONO % 11.9 % (0.0-10.0); NRBC % 0.1 % (0.0-2.0); RED CELL DISTRIBUTION WIDTH 15.9 % (11.5-14.5); WHITE BLOOD COUNT 8.7 K/uL (4.8-10.8)
--- NOTE | 2016-07-04 07:33 | CP.PCM.PN ---
Subjective - Date & Time of Evaluation Date of Evaluation: 07/04/16 Time of Evaluation: 07:30 - Subjective Subjective: Surgery: Dr. Rahman Patient had lots of throat irritation last night. Attempted throat spray, lozenges, and ice chips w/o relief. At 5:30am patient removed NGT due to discomfort. Patient reports passing flatus but no bm. He denies nausea or vomiting since NGT removed. He denies f/c. Objective - Vital Signs/Intake and Output Vital Signs (last 24 hours): Temp Pulse Resp BP Pulse Ox 98.3 F 101 H 20 119/75 95 07/03/16 23:30 07/03/16 23:30 07/03/16 23:30 07/03/16 23:30 07/03/16 23:30 Intake and Output: 07/04/16 07/04/16 06:59 18:59 Intake Total 2280 Output Total 1000 Balance 1280 - Medications Medications: Current Medications Albuterol/Ipratropium (Duoneb 3 Mg/0.5 Mg (3 Ml) Ud) 3 ml INH RQ6 PRN PRN Reason: Shortness of Breath Benzocaine/Menthol (Cepacol Sore Throat) 1 eduardo MT Q1 PRN PRN Reason: Sore Throat Last Admin: 07/04/16 02:26 Dose: 1 eduardo Ezetimibe (Zetia) 10 mg PO DAILY [facility] Famotidine (Pepcid) 20 mg IVP DAILY [facility] Last Admin: 07/03/16 10:06 Dose: 20 mg Heparin Sodium (Porcine) (Heparin) 5,000 units SC Q12 [facility] Last Admin: 07/03/16 21:22 Dose: 5,000 units Lactated Ringer's (Lactated Ringer's) 1,000 mls @ 135 mls/hr IV .Q7H25M [facility] Last Admin: 07/03/16 23:17 Dose: 135 mls/hr Lisinopril (Zestril) 5 mg PO DAILY [facility] Morphine Sulfate (Morphine) 6 mg IVP Q4H PRN PRN Reason: Pain, severe (8-10) Morphine Sulfate (Morphine) 4 mg IVP Q4H PRN PRN Reason: Pain, moderate (4-7) Last Admin: 07/04/16 02:31 Dose: 4 mg Ondansetron HCl (Zofran Inj) 4 mg IVP Q4 PRN PRN Reason: Nausea/Vomiting Phenol/Menthol (Phenaseptic 1.4% Throat [place]) 0 ml MT Q3 PRN PRN Reason: Sore Throat Last Admin: 07/04/16 02:26 Dose: 1 spr Fluticasone/Salmeterol (Advair Diskus 250/50) 1 puff INH RQ12 [facility] Last Admin: 07/03/16 19:34 Dose: 1 puff Zolpidem Tartrate (Ambien) 5 mg PO HS PRN PRN Reason: Insomnia - Labs Labs: 07/04/16 06:50 07/04/16 06:50 PT 12.4 SECONDS (9.7-12.2) H 07/02/16 16:09 INR 1.1 07/02/16 16:09 APTT 31 SECONDS (21-34) 07/02/16 16:09 - Constitutional Appears: Non-toxic, No Acute Distress - Head Exam Head Exam: ATRAUMATIC, NORMOCEPHALIC - Eye Exam Eye Exam: EOMI, Normal appearance - ENT Exam ENT Exam: Mucous Membranes Moist - Respiratory Exam Respiratory Exam: NORMAL BREATHING PATTERN. absent: Respiratory Distress - Cardiovascular Exam Cardiovascular Exam: REGULAR RHYTHM. absent: Tachycardia - GI/Abdominal Exam GI & Abdominal Exam: Distended, Soft. absent: Guarding, Rigid, Tenderness, Hernia, Rebound Additional comments: 3 small island dressings intact, pressure dressing in midline fell off. small blister on skin from tape. - Extremities Exam Extremities Exam: Normal Inspection. absent: Calf Tenderness - Neurological Exam Neurological Exam: Alert, Awake, Oriented x3 - Psychiatric Exam Psychiatric exam: Normal Affect, Normal Mood - Skin Skin Exam: Dry, Normal Color, Warm Assessment and Plan - Assessment and Plan (Free Text) Assessment: 56 y/o male w/ post op ileus, improving Plan: -replace NGT if patient develops nausea or vomiting -may consider trial of liquids today since passing flatus -encourage OOB and ambulation -support abdomen if coughing -monitor for bowel function -further recs per Dr. Rahman AKite PGY1
[2016-07-04] MEDS: Fluticasone-Salmeterol 250-50mcg Diskus INH SCH ×2 (08:25→20:52)
[2016-07-04] MEDS ORDERED: guaiFENesin 100 mg/5 ml Syrup UD PO PRN (09:00)
--- NOTE | 2016-07-04 11:30 | CP.PCM.PN ---
<Vika Scales Paul - Last Filed: 07/04/16 11:26> Subjective - Date & Time of Evaluation Date of Evaluation: 07/04/16 Time of Evaluation: 08:00 - Subjective Subjective: PGY2 Medicine Note - Dr. Zpeeda's service: Patient seen and examined at bedside this AM. Patient reports slight abdominal pain at site of hernia repair. Patient says he has not had a bowel movement in 5 days but is passing gas. Patient accidentally pulled out NGT early this AM. Surgery planned on removing NGT anyways per patient. NGT not replaced. No nausea or vomiting since NGT removed. Patient reports coughing a lot over night. Objective - Vital Signs/Intake and Output Vital Signs (last 24 hours): Temp Pulse Resp BP Pulse Ox 98.9 F 89 20 123/81 96 07/04/16 07:00 07/04/16 07:00 07/04/16 07:00 07/04/16 07:00 07/04/16 07:00 Intake and Output: 07/04/16 07/04/16 06:59 18:59 Intake Total 2280 1080 Output Total 1000 Balance 1280 1080 - Medications Medications: Current Medications Albuterol/Ipratropium (Duoneb 3 Mg/0.5 Mg (3 Ml) Ud) 3 ml INH RQ6 PRN PRN Reason: Shortness of Breath Benzocaine/Menthol (Cepacol Sore Throat) 1 eduardo MT Q1 PRN PRN Reason: Sore Throat Last Admin: 07/04/16 02:26 Dose: 1 eduardo Ezetimibe (Zetia) 10 mg PO DAILY [facility] Famotidine (Pepcid) 20 mg IVP DAILY [facility] Last Admin: 07/04/16 10:38 Dose: 20 mg Guaifenesin (Robitussin) 100 mg PO Q4H PRN PRN Reason: Cough Heparin Sodium (Porcine) (Heparin) 5,000 units SC Q12 [facility] Last Admin: 07/04/16 10:38 Dose: 5,000 units Lactated Ringer's (Lactated Ringer's) 1,000 mls @ 135 mls/hr IV .Q7H25M [facility] Last Admin: 07/03/16 23:17 Dose: 135 mls/hr Lisinopril (Zestril) 5 mg PO DAILY [facility] Morphine Sulfate (Morphine) 6 mg IVP Q4H PRN PRN Reason: Pain, severe (8-10) Last Admin: 07/04/16 10:38 Dose: 6 mg Morphine Sulfate (Morphine) 4 mg IVP Q4H PRN PRN Reason: Pain, moderate (4-7) Last Admin: 07/04/16 02:31 Dose: 4 mg Ondansetron HCl (Zofran Inj) 4 mg IVP Q4 PRN PRN Reason: Nausea/Vomiting Last Admin: 07/04/16 10:38 Dose: 4 mg Phenol/Menthol (Phenaseptic 1.4% Throat [place]) 0 ml MT Q3 PRN PRN Reason: Sore Throat Last Admin: 07/04/16 02:26 Dose: 1 spr Fluticasone/Salmeterol (Advair Diskus 250/50) 1 puff INH RQ12 [facility] Last Admin: 07/04/16 08:25 Dose: 1 puff Zolpidem Tartrate (Ambien) 5 mg PO HS PRN PRN Reason: Insomnia - Labs Labs: 07/04/16 06:50 07/04/16 06:50 PT 12.4 SECONDS (9.7-12.2) H 07/02/16 16:09 INR 1.1 07/02/16 16:09 APTT 31 SECONDS (21-34) 07/02/16 16:09 - Constitutional Appears: Non-toxic, No Acute Distress - Head Exam Head Exam: NORMAL INSPECTION - Eye Exam Eye Exam: EOMI - ENT Exam ENT Exam: Mucous Membranes Moist - Respiratory Exam Respiratory Exam: Clear to Ausculation Bilateral, NORMAL BREATHING PATTERN. absent: Rales, Rhonchi, Wheezes - Cardiovascular Exam Cardiovascular Exam: REGULAR RHYTHM, +S1, +S2. absent: Gallop, Rubs, Murmur - GI/Abdominal Exam GI & Abdominal Exam: Firm, Tenderness, Normal Bowel Sounds - Extremities Exam Extremities Exam: Normal Capillary Refill. absent: Pedal Edema - Neurological Exam Neurological Exam: Alert, Oriented x3 - Psychiatric Exam Psychiatric exam: Normal Affect, Normal Mood - Skin Skin Exam: Normal Color, Warm Assessment and Plan - Assessment and Plan (Free Text) Assessment: (1) Abdominal pain Assessment and Plan: POD #4 s/p robotic ventral hernia repair with Dr. Rahman. Patient w/ post op ileus Surgery consult placed- Dr. Rahman - help appreciated. NGT placed in the ED. NGT removed by patient at 5:30am 07/04/16 Per surgery note: -replace NGT if patient develops nausea or vomiting -may consider trial of liquids today since passing flatus -encourage OOB and ambulation -support abdomen if coughing -monitor for bowel function Patient on LR IVF as per surgery. Pain control with Morphine as per surgery. Abd/Pelvis CT - dilated fluid filled loops of small bowel worrisome for obstruction without transition point identified. Ileus cannot be excluded. Diverticulosis also seen. (please see full report) Status: Acute (2) Nausea & vomiting Assessment and Plan: Zofran PRN Resolved Status: Acute (3) Cough Assessment and Plan: Likely secondary to NGT If cough continues, will consider CXR Robitussin 100ml PO Q4H PRN cough Status: Acute (4) CHF (congestive heart failure) Assessment and Plan: Patient with cardiomyopathy and 41% EF. Patient sees Dr. Edwards as outpatient. Hx of positive stress test and recent cath 04/2016 showing non-obstructive coronary artery disease. Lisinopril 5 mg PO (home med) on hold. Will consult cardio as needed. Status: Acute (5) CAD (coronary artery disease) Assessment and Plan: Hx of positive stress test and recent cath 04/2016 showing non-obstructive coronary artery disease. Status: Acute (6) COPD (chronic obstructive pulmonary disease) Assessment and Plan: Duonebs Q6H PRN SOB Resume home med Advair Diskus 250/50 INH Q12H Status: Acute (7) Prophylactic measure Assessment and Plan: Pepcid IVP daily Heparin SC Q12H Status: Acute <Santiago Zepeda - Last Filed: 08/13/16 12:45> Objective - Vital Signs/Intake and Output Vital Signs (last 24 hours): Temp Pulse Resp BP Pulse Ox 98.3 F 87 20 149/94 H 95 07/05/16 08:00 07/05/16 08:00 07/05/16 08:00 07/05/16 08:00 07/05/16 08:00 - Labs Labs: 07/05/16 06:02 07/05/16 06:02 PT 12.4 SECONDS (9.7-12.2) H 05/05/17 16:09 INR 1.1 07/02/16 16:09 APTT 31 SECONDS (21-34) 07/02/16 16:09 Attending/Attestation - Attestation I have personally seen and examined this patient.: Yes I have fully participated in the care of the patient.: Yes I have reviewed all pertinent clinical information, including history, physical exam and plan: Yes Notes (Text): Patient Seen and examined with the resident. Agree with the resident's evaluation, assessment and plan. Abdominal pain due to possible sbo/illeus Nausea & vomiting with abd pain Cough Likely secondary to NGT CHF (congestive heart failure) chronic not acute Hyponatremia
[2016-07-04] MEDS: Lactated Ringer's 1,000 ML IV SCH (20:55)
--- NOTE | 2016-07-04 23:38 | RAD ---
EXAM: XR Abdomen Complete, 2 or More Views CLINICAL HISTORY: 56 years old, male; Pain; Abdominal pain; Generalized; Additional info: Distention TECHNIQUE: Frontal view of the abdomen/pelvis with upright view of the abdomen. COMPARISON: No relevant prior studies available. FINDINGS: Intraperitoneal space: No free air. Gastrointestinal tract: Multiple dilated small and large bowel, findings suggesting ileus, rather than obstruction. No air is identified within the rectum. IMPRESSION: Findings suggesting ileus, rather than obstruction, as detailed above.
[2016-07-04] MEDS: Simethicone 80 mg Chewtab PO SCH (23:45)
[2016-07-05 01:37] VITALS: O2SAT 95
[2016-07-05] MEDS: Lactated Ringer's 1,000 ML IV SCH ×2 (05:40→11:52)
[2016-07-05 06:15] LABS: CHLORIDE 91 mmol/L (98-107); POTASSIUM 3.7 mmol/L (3.6-5.2); SODIUM 130 mmol/L (132-148)
[2016-07-05 06:17] LABS: AST/SGOT 19 U/L (17-59); BILIRUBIN,TOTAL 0.5 mg/dL (0.2-1.3); CARBON DIOXIDE 30 mmol/L (22-30); GFR AFRICAN-AMERICAN > 60; TOTAL PROTEIN 6.8 g/dL (6.3-8.3)
[2016-07-05 06:18] LABS: ALKALINE PHOSPHATASE 47 U/L (38-126); ALT/SGPT 29 U/L (21-72); BLOOD UREA NITROGEN 10 mg/dL (9-20); CALCIUM 8.3 mg/dl (8.6-10.4); GLUCOSE,RANDOM 113 mg/dL (75-110)
[2016-07-05 06:30] LABS: BASO % 0.3 % (0.0-2.0); EOS % 0.7 % (0.0-4.0); HEMATOCRIT 34.9 % (35.0-51.0); LYMPH # 1.7 K/uL (1.0-4.3); LYMPH % 25.8 % (20.0-40.0); MEAN CELL VOLUME 61.6 fL (80.0-94.0); MEAN CORPUSCULAR HEMOGLOBIN 18.9 pg (27.0-31.0); MEAN CORPUSCULAR HGB CONC 30.8 g/dL (33.0-37.0); MEAN PLATELET VOLUME 8.7 fL (7.2-11.7); MONO # 0.9 K/uL (0.0-0.8); MONO % 13.1 % (0.0-10.0); NRBC % 0.1 % (0.0-2.0); RED CELL DISTRIBUTION WIDTH 15.8 % (11.5-14.5); WHITE BLOOD COUNT 6.5 K/uL (4.8-10.8)
--- NOTE | 2016-07-05 07:42 | CP.PCM.PN ---
Objective - Vital Signs/Intake and Output Vital Signs (last 24 hours): Temp Pulse Resp BP Pulse Ox 99.1 F 88 20 134/82 95 07/05/16 00:00 07/05/16 00:00 07/05/16 00:00 07/05/16 00:00 07/05/16 00:00 Intake and Output: 07/05/16 07/05/16 06:59 18:59 Intake Total 1080 Balance 1080 - Medications Medications: Current Medications Albuterol/Ipratropium (Duoneb 3 Mg/0.5 Mg (3 Ml) Ud) 3 ml INH RQ6 PRN PRN Reason: Shortness of Breath Benzocaine/Menthol (Cepacol Sore Throat) 1 eduardo MT Q1 PRN PRN Reason: Sore Throat Last Admin: 07/04/16 02:26 Dose: 1 eduardo Docusate Sodium (Colace) 100 mg PO BID [facility] Last Admin: 07/04/16 23:45 Dose: Not Given Ezetimibe (Zetia) 10 mg PO DAILY [facility] Famotidine (Pepcid) 20 mg IVP DAILY [facility] Last Admin: 07/04/16 10:38 Dose: 20 mg Guaifenesin (Robitussin) 100 mg PO Q4H PRN PRN Reason: Cough Heparin Sodium (Porcine) (Heparin) 5,000 units SC Q12 [facility] Last Admin: 07/04/16 21:41 Dose: 5,000 units Lactated Ringer's (Lactated Ringer's) 1,000 mls @ 135 mls/hr IV .Q7H25M [facility] Last Admin: 07/05/16 05:40 Dose: Not Given Lisinopril (Zestril) 5 mg PO DAILY [facility] Morphine Sulfate (Morphine) 6 mg IVP Q4H PRN PRN Reason: Pain, severe (8-10) Last Admin: 07/04/16 10:38 Dose: 6 mg Morphine Sulfate (Morphine) 4 mg IVP Q4H PRN PRN Reason: Pain, moderate (4-7) Last Admin: 07/04/16 02:31 Dose: 4 mg Ondansetron HCl (Zofran Inj) 4 mg IVP Q4 PRN PRN Reason: Nausea/Vomiting Last Admin: 07/04/16 10:38 Dose: 4 mg Phenol/Menthol (Phenaseptic 1.4% Throat [place]) 0 ml MT Q3 PRN PRN Reason: Sore Throat Last Admin: 07/04/16 02:26 Dose: 1 spr Fluticasone/Salmeterol (Advair Diskus 250/50) 1 puff INH RQ12 [facility] Last Admin: 07/04/16 20:52 Dose: 1 puff Simethicone (Mylicon Chew Tab) 80 mg PO QID [facility] Last Admin: 07/04/16 23:45 Dose: Not Given Zolpidem Tartrate (Ambien) 5 mg PO HS PRN PRN Reason: Insomnia - Labs Labs: 07/05/16 06:02 07/05/16 06:02 PT 12.4 SECONDS (9.7-12.2) H 07/02/16 16:09 INR 1.1 07/02/16 16:09 APTT 31 SECONDS (21-34) 07/02/16 16:09
--- NOTE | 2016-07-05 07:58 | CP.PCM.PN ---
<Joshua Shaw - Last Filed: 07/05/16 07:55> Subjective - Date & Time of Evaluation Date of Evaluation: 07/05/16 Time of Evaluation: 07:55 - Subjective Subjective: Surgery: Dr. Rahman Patient reports flatus and BM. Patient complains of pain in the surgical site when coughing, as expected. Patient denies n/v/f/c. Per nursing no acute events overnight. Objective - Vital Signs/Intake and Output Vital Signs (last 24 hours): Temp Pulse Resp BP Pulse Ox 99.1 F 88 20 134/82 95 07/05/16 00:00 07/05/16 00:00 07/05/16 00:00 07/05/16 00:00 07/05/16 00:00 Intake and Output: 07/05/16 07/05/16 06:59 18:59 Intake Total 1080 Balance 1080 - Medications Medications: Current Medications Albuterol/Ipratropium (Duoneb 3 Mg/0.5 Mg (3 Ml) Ud) 3 ml INH RQ6 PRN PRN Reason: Shortness of Breath Benzocaine/Menthol (Cepacol Sore Throat) 1 eduardo MT Q1 PRN PRN Reason: Sore Throat Last Admin: 07/04/16 02:26 Dose: 1 eduardo Docusate Sodium (Colace) 100 mg PO BID [facility] Last Admin: 07/04/16 23:45 Dose: Not Given Ezetimibe (Zetia) 10 mg PO DAILY [facility] Famotidine (Pepcid) 20 mg IVP DAILY [facility] Last Admin: 07/04/16 10:38 Dose: 20 mg Guaifenesin (Robitussin) 100 mg PO Q4H PRN PRN Reason: Cough Heparin Sodium (Porcine) (Heparin) 5,000 units SC Q12 [facility] Last Admin: 07/04/16 21:41 Dose: 5,000 units Lactated Ringer's (Lactated Ringer's) 1,000 mls @ 135 mls/hr IV .Q7H25M [facility] Last Admin: 07/05/16 05:40 Dose: Not Given Lisinopril (Zestril) 5 mg PO DAILY [facility] Morphine Sulfate (Morphine) 6 mg IVP Q4H PRN PRN Reason: Pain, severe (8-10) Last Admin: 07/04/16 10:38 Dose: 6 mg Morphine Sulfate (Morphine) 4 mg IVP Q4H PRN PRN Reason: Pain, moderate (4-7) Last Admin: 07/04/16 02:31 Dose: 4 mg Ondansetron HCl (Zofran Inj) 4 mg IVP Q4 PRN PRN Reason: Nausea/Vomiting Last Admin: 07/04/16 10:38 Dose: 4 mg Phenol/Menthol (Phenaseptic 1.4% Throat Boykin) 0 ml MT Q3 PRN PRN Reason: Sore Throat Last Admin: 07/04/16 02:26 Dose: 1 spr Fluticasone/Salmeterol (Advair Diskus 250/50) 1 puff INH RQ12 [facility] Last Admin: 07/04/16 20:52 Dose: 1 puff Simethicone (Mylicon Chew Tab) 80 mg PO QID [facility] Last Admin: 07/04/16 23:45 Dose: Not Given Zolpidem Tartrate (Ambien) 5 mg PO HS PRN PRN Reason: Insomnia - Labs Labs: 07/05/16 06:02 07/05/16 06:02 PT 12.4 SECONDS (9.7-12.2) H 07/02/16 16:09 INR 1.1 07/02/16 16:09 APTT 31 SECONDS (21-34) 07/02/16 16:09 - Constitutional Appears: Non-toxic, No Acute Distress - Head Exam Head Exam: ATRAUMATIC, NORMOCEPHALIC - Eye Exam Eye Exam: EOMI, Normal appearance - ENT Exam ENT Exam: Mucous Membranes Moist - Respiratory Exam Respiratory Exam: NORMAL BREATHING PATTERN. absent: Respiratory Distress - Cardiovascular Exam Cardiovascular Exam: REGULAR RHYTHM. absent: Tachycardia - GI/Abdominal Exam GI & Abdominal Exam: Distended, Soft. absent: Guarding, Rigid, Tenderness Additional comments: Surgical dressing CDI - Extremities Exam Extremities Exam: absent: Calf Tenderness Assessment and Plan - Assessment and Plan (Free Text) Assessment: 56 y/o male w/ post op ileus Plan: -resolved -ok for regular diet -cleared for d/c from surgical standpoint -cont colace BID at home -do not cont percocet as could worsen constipation -encourage OOB -f/u w/ Dr. Rahman in 1 week -take tylenol or motrin for pain [facility] <Tj Rahman - Last Filed: 07/07/16 22:00> Objective - Vital Signs/Intake and Output Vital Signs (last 24 hours): Temp Pulse Resp BP Pulse Ox 98.3 F 87 20 149/94 H 95 07/05/16 08:00 07/05/16 08:00 07/05/16 08:00 07/05/16 08:00 07/05/16 08:00 - Labs Labs: 07/05/16 06:02 07/05/16 06:02 PT 12.4 SECONDS (9.7-12.2) H 07/02/16 16:09 INR 1.1 07/02/16 16:09 APTT 31 SECONDS (21-34) 07/02/16 16:09 Attending/Attestation - Attestation I have personally seen and examined this patient.: Yes I have fully participated in the care of the patient.: Yes I have reviewed all pertinent clinical information, including history, physical exam and plan: Yes Notes (Text): 07/07/16 21:59 Pt was seen and examined at bedside on 07/05/16 Agree with above note and assessment. Pt with resolved Narcotic induced ileus Can be DC home Reg diet Avoid constipation f.U as out pt 07/07/16 22:00
[2016-07-05] MEDS: Simethicone 80 mg Chewtab PO SCH ×2 (08:21→11:58)
[2016-07-05 09:12] VITALS: BP 149/94; PULSE 87; TEMP 98.3
--- NOTE | 2016-07-05 09:32 | CP.PCM.DIS ---
<Elli Jaramillo - Last Filed: 07/05/16 19:22> Provider - Provider Date of Admission: 07/02/16 17:10 Attending physician: Santiago Zepeda MD Primary care physician: Dr. Aleman Consults: Dr. Rahman surgery Time Spent in preparation of Discharge (in minutes): 45 Hospital Course - Lab Results Lab Results: Most Recent Lab Values WBC 6.5 K/uL (4.8-10.8) 07/05/16 06:02 RBC 5.67 Mil/uL (4.40-5.90) 07/05/16 06:02 Hgb 10.7 g/dL (12.0-18.0) L 07/05/16 06:02 Hct 34.9 % (35.0-51.0) L 07/05/16 06:02 MCV 61.6 fL (80.0-94.0) L 07/05/16 06:02 MCH 18.9 pg (27.0-31.0) L 07/05/16 06:02 MCHC 30.8 g/dL (33.0-37.0) L 07/05/16 06:02 RDW 15.8 % (11.5-14.5) H 07/05/16 06:02 Plt Count 261 K/uL (130-400) 07/05/16 06:02 MPV 8.7 fL (7.2-11.7) 07/05/16 06:02 Neut % (Auto) 60.1 % (50.0-75.0) 07/05/16 06:02 Lymph % (Auto) 25.8 % (20.0-40.0) 07/05/16 06:02 Howard % (Auto) 13.1 % (0.0-10.0) H 07/05/16 06:02 Eos % (Auto) 0.7 % (0.0-4.0) 07/05/16 06:02 Baso % (Auto) 0.3 % (0.0-2.0) 07/05/16 06:02 Neut # 3.9 K/uL (1.8-7.0) 07/05/16 06:02 Lymph # 1.7 K/uL (1.0-4.3) 07/05/16 06:02 Howard # 0.9 K/uL (0.0-0.8) H 07/05/16 06:02 Eos # 0.0 K/uL (0.0-0.7) 07/05/16 06:02 Baso # 0.0 K/uL (0.0-0.2) 07/05/16 06:02 Neutrophils % (Manual) 84 % (50-75) H 07/02/16 16:09 Band Neutrophils % 3 % (0-2) H 07/02/16 16:09 Lymphocytes % (Manual) 9 % (20-40) L 07/02/16 16:09 Monocytes % (Manual) 4 % (0-10) 07/02/16 16:09 Toxic Granulation Present 07/02/16 16:09 Platelet Estimate Normal (NORMAL) 07/02/16 16:09 Hypochromasia (manual) Slight 07/02/16 16:09 Anisocytosis (manual) Slight 07/02/16 16:09 Target Cells Slight 07/02/16 16:09 Tear Drop Cells Slight 07/02/16 16:09 Ovalocytes Slight 07/02/16 16:09 PT 12.4 SECONDS (9.7-12.2) H 07/02/16 16:09 INR 1.1 07/02/16 16:09 APTT 31 SECONDS (21-34) 07/02/16 16:09 Sodium 130 mmol/L (132-148) L 07/05/16 06:02 Potassium 3.7 mmol/L (3.6-5.2) 07/05/16 06:02 Chloride 91 mmol/L (98-107) L 07/05/16 06:02 Carbon Dioxide 30 mmol/L (22-30) 07/05/16 06:02 Anion Gap 13 (10-20) 07/05/16 06:02 BUN 10 mg/dL (9-20) 07/05/16 06:02 Creatinine 0.7 MG/DL (0.8-1.5) L 07/05/16 06:02 Est GFR ( Amer) > 60 07/05/16 06:02 Est GFR (Non-Af Amer) > 60 07/05/16 06:02 Random Glucose 113 mg/dL (75-110) H 07/05/16 06:02 Calcium 8.3 mg/dl (8.6-10.4) L 07/05/16 06:02 Total Bilirubin 0.5 mg/dL (0.2-1.3) 07/05/16 06:02 AST 19 U/L (17-59) 07/05/16 06:02 ALT 29 U/L (21-72) 07/05/16 06:02 Alkaline Phosphatase 47 U/L (38-126) 07/05/16 06:02 Troponin I 0.0180 ng/mL (0.00-0.120) 07/02/16 16:09 Total Protein 6.8 g/dL (6.3-8.3) 07/05/16 06:02 Albumin 3.3 g/dL (3.5-5.0) L 07/05/16 06:02 Globulin 3.4 gm/dL (2.2-3.9) 07/05/16 06:02 Albumin/Globulin Ratio 1.0 (1.0-2.1) 07/05/16 06:02 Lipase 31 U/L (23-300) 07/02/16 16:09 Urine Color Sharonda (YELLOW) 07/03/16 17:21 Urine Clarity Clear (Clear) 07/03/16 17:21 Urine pH 5.0 (5.0-8.0) 07/03/16 17:21 Ur Specific [place] 1.031 (1.003-1.030) H 07/03/16 17:21 Urine Protein 1+ mg/dL (NEGATIVE) H 07/03/16 17:21 Urine Glucose (UA) Normal mg/dL (Normal) 07/03/16 17:21 Urine Ketones 2+ mg/dL (NEGATIVE) H 07/03/16 17:21 Urine Blood Negative (NEGATIVE) 07/03/16 17:21 Urine Nitrate Negative (NEGATIVE) 07/03/16 17:21 Urine Bilirubin Negative (NEGATIVE) 07/03/16 17:21 Urine Urobilinogen 2.0 mg/dL (0.2-1.0) 07/03/16 17:21 Ur Leukocyte Esterase Neg Rambo/uL (Negative) 07/03/16 17:21 Urine WBC (Auto) 1 /hpf (0-5) 07/03/16 17:21 Urine RBC (Auto) < 1 /hpf (0-3) 07/03/16 17:21 Ur Squamous Epith Cells < 1 /hpf (0-5) 07/03/16 17:21 Urine Bacteria Rare (<OCC) 07/03/16 17:21 - Hospital Course Hospital Course: Upon Admission: Patient is a 56 year old male PMHx of cardiomyopathy, CHF with an EF of 41%, non obstructive CAD, B-thalassemia, asthma/COPD presents to the ED with 2 days history of abdominal pain and 1 day history of intractable nausea and vomiting. Patient was POD#2 s/p robotic assisted lap ventral hernia repair on 06/30/[address] Rahman. He admitted to abdominal distention and having no BMs since before the surgery. Patient was admitted to the floors and surgery Dr. Rahman was consulted. Patient had an NGT placed on suction. CT Abd/pelvis showed dilated fluid filled loops of small bowel worrisome for obstruction without transition point identified; ileus cannot be excluded. Patient was treated for postop ileus. He self removed NGT and as per surgery was started on a liquid diet which was to be advanced as tolerated and was encouraged to be OOB and ambulate. On day of discharge, patient tolerated regular diet and had a BM and was also deemed medically stable for discharge. Upon Discharge: Patient stable for discharge home as per hospitalist Dr. Villarreal and surgery Dr. Rahman. Patient to continue home medications and to additionally take new medications as prescribed: Colace 100mg PO BID Disp#60 Simethicone 80mg PO QID Disp#120 Patient to follow up with Dr. Rahman within 7 days. Patient has also been encouraged to ambulate and be out of bed. Patient should NOT continue taking percocet as it worsens constipation. For pain patient has been encouraged to take over the counter tylenol or motrin. Patient has also been encouraged to follow up with PMD Dr. Fontanez within 7 days and to follow up with [facility] Dr. Edwards within 10 days. If symptoms persist or worsen patient is to visit ER immediately. Instructions discussed in detail with patient who understands and agrees. Please note this is a dc summary. For full hospital course please refer to medical records. Discharge Exam - Head Exam Head Exam: ATRAUMATIC, NORMOCEPHALIC - Eye Exam Eye Exam: EOMI, Normal appearance, PERRL. absent: Conjunctival injection, Scleral icterus Pupil Exam: NORMAL ACCOMODATION, PERRL - ENT Exam ENT Exam: Mucous Membranes Moist - Neck Exam Neck exam: Normal Inspection - Respiratory Exam Respiratory Exam: Clear to PA & Lateral, NORMAL BREATHING PATTERN. absent: Accessory Muscle Use, Rales, Rhonchi, Wheezes, Respiratory Distress - Cardiovascular Exam Cardiovascular Exam: REGULAR RHYTHM, RRR, +S1, +S2. absent: Systolic Murmur - GI/Abdominal Exam GI & Abdominal Exam: Distended, Normal Bowel Sounds, Soft, Tenderness (to palpation) - Extremities Exam Extremities exam: normal capillary refill, normal inspection, pedal pulses present - Back Exam Back exam: NORMAL INSPECTION. absent: rash noted - Neurological Exam Neurological exam: Alert, Normal Gait, Oriented x3 - Psychiatric Exam Psychiatric exam: Normal Affect, Normal Mood - Skin Skin Exam: Dry, Intact, Normal Color, Warm Discharge Plan - Discharge Medications Prescriptions: Docusate [Colace] 100 mg PO BID #60 cap Simethicone [Mylicon Chew Tab] 80 mg PO QID #120 - Follow Up Plan Condition: GOOD Disposition: HOME/ ROUTINE Instructions: Simethicone (By mouth), Laxative, Stool Softeners (By mouth), Heart Failure (DC), Heart Failure (GEN), Pacemaker (DC), Pacemaker (GEN), Pulmonary Edema (DC), Pulmonary Edema (GEN), Low Fat Diet (DC), Heart Healthy Diet (DC), Acute Nausea and Vomiting (GEN), Acute Abdominal Pain (DC), Acute Abdominal Pain (GEN), Ascites (DC), Ascites (GEN) Additional Instructions: Patient stable for discharge home as per hospitalist Dr. Villarreal and surgery Dr. Rahman. Patient to continue home medications and to additionally take new medications as prescribed: Colace 100mg PO BID Disp#60 Simethicone 80mg PO QID Disp#120 Patient to follow up with Dr. Rahman within 7 days. Patient has also been encouraged to ambulate and be out of bed. Patient should NOT continue taking percocet as it worsens constipation. For pain patient has been encouraged to take over the counter tylenol or motrin. Patient has also been encouraged to follow up with PMD Dr. Fontanez within 7 days and to follow up with [facility] Dr. Edwards within 10 days. If symptoms persist or worsen patient is to visit ER immediately. Instructions discussed in detail with patient who understands and agrees. Referrals: Tj Rahman MD [Staff Provider] - Gaurang Edwards MD [Medical Doctor] - <Andrea Villarreal - Last Filed: 07/06/16 17:19> Provider - Provider Date of Admission: 07/02/16 17:10 Attending physician: Santiago Zepeda MD Hospital Course - Lab Results Lab Results: Micro Results 07/03/16 17:30 Urine Urine Culture - Final No Growth (<1,000 CFU/ML) Most Recent Lab Values WBC 6.5 K/uL (4.8-10.8) 07/05/16 06:02 RBC 5.67 Mil/uL (4.40-5.90) 07/05/16 06:02 Hgb 10.7 g/dL (12.0-18.0) L 07/05/16 06:02 Hct 34.9 % (35.0-51.0) L 07/05/16 06:02 MCV 61.6 fL (80.0-94.0) L 07/05/16 06:02 MCH 18.9 pg (27.0-31.0) L 07/05/16 06:02 MCHC 30.8 g/dL (33.0-37.0) L 07/05/16 06:02 RDW 15.8 % (11.5-14.5) H 07/05/16 06:02 Plt Count 261 K/uL (130-400) 07/05/16 06:02 MPV 8.7 fL (7.2-11.7) 07/05/16 06:02 Neut % (Auto) 60.1 % (50.0-75.0) 07/05/16 06:02 Lymph % (Auto) 25.8 % (20.0-40.0) 07/05/16 06:02 Howard % (Auto) 13.1 % (0.0-10.0) H 07/05/16 06:02 Eos % (Auto) 0.7 % (0.0-4.0) 07/05/16 06:02 Baso % (Auto) 0.3 % (0.0-2.0) 07/05/16 06:02 Neut # 3.9 K/uL (1.8-7.0) 07/05/16 06:02 Lymph # 1.7 K/uL (1.0-4.3) 07/05/16 06:02 Howard # 0.9 K/uL (0.0-0.8) H 07/05/16 06:02 Eos # 0.0 K/uL (0.0-0.7) 07/05/16 06:02 Baso # 0.0 K/uL (0.0-0.2) 07/05/16 06:02 Neutrophils % (Manual) 84 % (50-75) H 07/02/16 16:09 Band Neutrophils % 3 % (0-2) H 07/02/16 16:09 Lymphocytes % (Manual) 9 % (20-40) L 07/02/16 16:09 Monocytes % (Manual) 4 % (0-10) 07/02/16 16:09 Toxic Granulation Present 07/02/16 16:09 Platelet Estimate Normal (NORMAL) 07/02/16 16:09 Hypochromasia (manual) Slight 07/02/16 16:09 Anisocytosis (manual) Slight 07/02/16 16:09 Target Cells Slight 07/02/16 16:09 Tear Drop Cells Slight 07/02/16 16:09 Ovalocytes Slight 07/02/16 16:09 PT 12.4 SECONDS (9.7-12.2) H 07/02/16 16:09 INR 1.1 07/02/16 16:09 APTT 31 SECONDS (21-34) 07/02/16 16:09 Sodium 130 mmol/L (132-148) L 07/05/16 06:02 Potassium 3.7 mmol/L (3.6-5.2) 07/05/16 06:02 Chloride 91 mmol/L (98-107) L 07/05/16 06:02 Carbon Dioxide 30 mmol/L (22-30) 07/05/16 06:02 Anion Gap 13 (10-20) 07/05/16 06:02 BUN 10 mg/dL (9-20) 07/05/16 06:02 Creatinine 0.7 MG/DL (0.8-1.5) L 07/05/16 06:02 Est GFR ( Amer) > 60 07/05/16 06:02 Est GFR (Non-Af Amer) > 60 07/05/16 06:02 Random Glucose 113 mg/dL (75-110) H 07/05/16 06:02 Calcium 8.3 mg/dl (8.6-10.4) L 07/05/16 06:02 Total Bilirubin 0.5 mg/dL (0.2-1.3) 07/05/16 06:02 AST 19 U/L (17-59) 07/05/16 06:02 ALT 29 U/L (21-72) 07/05/16 06:02 Alkaline Phosphatase 47 U/L (38-126) 07/05/16 06:02 Troponin I 0.0180 ng/mL (0.00-0.120) 07/02/16 16:09 Total Protein 6.8 g/dL (6.3-8.3) 07/05/16 06:02 Albumin 3.3 g/dL (3.5-5.0) L 07/05/16 06:02 Globulin 3.4 gm/dL (2.2-3.9) 07/05/16 06:02 Albumin/Globulin Ratio 1.0 (1.0-2.1) 07/05/16 06:02 Lipase 31 U/L (23-300) 07/02/16 16:09 Urine Color [place] (YELLOW) 07/03/16 17:21 Urine Clarity Clear (Clear) 07/03/16 17:21 Urine pH 5.0 (5.0-8.0) 07/03/16 17:21 Ur Specific [place] 1.031 (1.003-1.030) H 07/03/16 17:21 Urine Protein 1+ mg/dL (NEGATIVE) H 07/03/16 17:21 Urine Glucose (UA) Normal mg/dL (Normal) 07/03/16 17:21 Urine Ketones 2+ mg/dL (NEGATIVE) H 07/03/16 17:21 Urine Blood Negative (NEGATIVE) 07/03/16 17:21 Urine Nitrate Negative (NEGATIVE) 07/03/16 17:21 Urine Bilirubin Negative (NEGATIVE) 07/03/16 17:21 Urine Urobilinogen 2.0 mg/dL (0.2-1.0) 07/03/16 17:21 Ur Leukocyte Esterase Neg Rambo/uL (Negative) 07/03/16 17:21 Urine WBC (Auto) 1 /hpf (0-5) 07/03/16 17:21 Urine RBC (Auto) < 1 /hpf (0-3) 07/03/16 17:21 Ur Squamous Epith Cells < 1 /hpf (0-5) 07/03/16 17:21 Urine Bacteria Rare (<OCC) 07/03/16 17:21 Attending/Attestation - Attestation I have personally seen and examined this patient.: Yes I have fully participated in the care of the patient.: Yes I have reviewed all pertinent clinical information, including history, physical exam and plan: Yes Notes (Text): 07/06/16 17:19 Patient was seen and examined at bedside with the resident. Patient appeared comfortable and did not complain of any abdominal pain. Patient is having bowel movements He is cleared for discharge by surgery and we will discharge the patient to home I agree with the above discharge note by the resident.
--- NOTE | 2016-07-07 13:37 | PCM.HF ---
Heart Failure Core Measure - Heart Failure Ejection Fraction: 40 % or Greater Contraindication/Reason for not providing: patient's primary personal injury paralegal prescribed CHF medications Contraindication/Reason for not providing: patient's primary personal injury paralegal prescribed CHF medications Contraindication/Reason for not providing: patient's primary personal injury paralegal prescribed CHF medications Contraindication/Reason for not providing: Patient does not have hx of Afib/ Aflutter Contraindication/Reason for not providing: patient's primary personal injury paralegal prescribed CHF medications Contraindication/Reason for not providing: patient's primary personal injury paralegal prescribed CHF medications - Follow up Will be discharged to: Home Follow Up Date (must be within 7 days from discharge): 07/08/16 Follow Up Time: 09:00
--- NOTE | 2016-07-09 13:37 | CARD ---
APPROVED REPORT EKG Measurement Heart [id number] <Conclusion> Sinus tachycardia Otherwise normal ECG
== END 2016-07-05 13:25 | disposition home or self-care (01) | DRG 336 ==
LOC: C.ER 14:11 → C.3T 17:10
PROVIDERS: ADMIT Internal Medicine; ATTEND Internal Medicine
PROC: 0WUF4JZ Supplement Abdominal Wall with Synthetic Substitute, Percutaneous Endoscopic Approach (ICD-10-PCS; principal; 2016-07-02)
PROC: 0DNW4ZZ Release Peritoneum, Percutaneous Endoscopic Approach (ICD-10-PCS; 2016-07-02)
PROC: 0WPF4JZ Removal of Synthetic Substitute from Abdominal Wall, Percutaneous Endoscopic Approach (ICD-10-PCS; 2016-07-02)
PROC: 8E0W4CZ Robotic Assisted Procedure of Trunk Region, Percutaneous Endoscopic Approach (ICD-10-PCS; 2016-07-02)
DX: K43.2 Incisional hernia without obstruction or gangrene (principal); K91.89 Other postprocedural complications and disorders of digestive system; I42.9 Cardiomyopathy, unspecified; I50.9 Heart failure, unspecified; J44.9 Chronic obstructive pulmonary disease, unspecified; D56.9 Thalassemia, unspecified; I25.10 Atherosclerotic heart disease of native coronary artery without angina pectoris; Y83.8 Other surgical procedures as the cause of abnormal reaction of the patient, or of later complication, without mention of misadventure at the time of the procedure; K57.90 Diverticulosis of intestine, part unspecified, without perforation or abscess without bleeding; J45.909 Unspecified asthma, uncomplicated; Z79.899 Other long term (current) drug therapy; E66.01 Morbid (severe) obesity due to excess calories; K66.0 Peritoneal adhesions (postprocedural) (postinfection); K42.9 Umbilical hernia without obstruction or gangrene